=== PATIENT | female | born 1955 | race Caucasian/White ===

== ENCOUNTER → 2017-04-11 | Outpatient (CLI) | payer BC ==
[~2017-04-11] MED LIST: LOMOTIL 60 ML60 ML PO; ZOFRAN4 MG/5 ML PO
== END | disposition home or self-care (01) ==
LOC: RAD 13:59
DX: M79.671 Pain in right foot (principal)

== ENCOUNTER → 2018-07-31 | Outpatient (CLI) | payer BC | END | disposition home or self-care (01) | LOC: RAD 12:41 → MAMMO 14:20 | DX: Z12.31 Encounter for screening mammogram for malignant neoplasm of breast (principal); Z13.220 Encounter for screening for lipoid disorders; Z78.0 Asymptomatic menopausal state; Z90.710 Acquired absence of both cervix and uterus ==